=== PATIENT | male | born 1985 | race Caucasian/White ===

== ENCOUNTER 2017-12-19 09:56 | Emergency (ER) | payer MEDICAID ==
[~2017-12-19] VITALS: Ht 177.8 cm; Wt 90.0 kg
[~2017-12-19 09:56] MED LIST: ADVI200C9; CYCL-36 PO; ULTR50TA PO; ZOFR4TAB3 SL
[2017-12-19] MEDS ORDERED: IOHEXOL 350 MG/ML 10 ML VIAL (for RAD DIAG) IVCONTRAST ONE (09:57)
[2017-12-19 10:01] VITALS: BP 164/79; PULSE 50; RESP 18; TEMP 98.4; O2SAT 98
[2017-12-19] MEDS ORDERED: SODIUM CHLOR 0.9% 1000 ML INJ 1,000 ML IV SCH (10:10)
--- NOTE | 2017-12-19 10:13 | PD ---
HPI Chief Complaint: GI Complaint Time Seen by Provider: 10:03 Travel History International Travel<30 days: No Contact w/Intl Traveler<30days: No Traveled to known affect area: No History of Present Illness HPI The patient is a 32-year-old male who presents to the emergency department via private vehicle for nausea, vomiting, diarrhea, and abdominal pain. The patient states his symptoms started on Wednesday night. The patient states he had body aches, had pain that went up the spine to the shoulders and down into the legs with cramping. The patient was in and out of a hot shower to alleviate his symptoms. He then developed nausea and vomiting, now notes epigastric pain. He does have some epigastric pain that radiates to the back with a burning sensation throughout the chest. The patient was seen at [facility] where he states he received IV fluids and was discharged home with anxiety medications. However, the patient has persistent nausea and vomiting as well as diarrhea. The patient describes the diarrhea as loose, watery, brown, without any visible blood. The patient denies any recent international travel and denies any sick contacts at home. He denies any fever , chills, or sweats. [facility] Past Medical History Medical History: Denies Significant Hx Diminished Hearing: No Tetanus Vaccination: < 5 Years Social History Alcohol Use: Yes (occ) Tobacco Use: No Substance Use: No Allergies-Medications (Allergen,Severity, Reaction): Coded Allergies: No Known Allergies (Verified Allergy, Mild, 02/02/15) Reported Meds & Prescriptions Reported Meds & Active Scripts Active Review of Systems Except as stated in HPI: all other systems reviewed are Neg General / Constitutional: No: Fever, Chills HENT: No: Lightheadedness Cardiovascular: No: Chest Pain or Discomfort Respiratory: No: Shortness of Breath Gastrointestinal: Positive: Nausea, Vomiting, Diarrhea, Abdominal Pain Genitourinary: No: Dysuria Musculoskeletal: Positive: Cramping Neurologic: No: Weakness, Dizziness Physical Exam Narrative GENERAL: Awake, alert, pleasant 32-year-old male who appears his stated age and is in no acute respiratory distress. SKIN: Focused skin assessment warm/dry. HEAD: Atraumatic. Normocephalic. EYES: Pupils equal and round. No scleral icterus. No injection or drainage. ENT: No nasal bleeding or discharge. Mucous membranes pink and moist. NECK: Trachea midline. No JVD. CARDIOVASCULAR: Regular, bradycardic with a heart rate in the 50s. RESPIRATORY: No accessory muscle use. Clear to auscultation. Breath sounds equal bilaterally. GASTROINTESTINAL: Abdomen soft, mild epigastric tenderness. No guarding or rigidity. Negative Vega's. Negative McBurney's. Back: No CVA tenderness. MUSCULOSKELETAL: No obvious deformities. No clubbing. No cyanosis. No edema. NEUROLOGICAL: Awake and alert. No obvious cranial nerve deficits. Motor grossly within normal limits. Normal speech. PSYCHIATRIC: Appropriate mood and affect; insight and judgment normal. Data Data Last Documented VS Vital Signs Date Time Temp Pulse Resp B/P (MAP) Pulse Ox O2 Delivery O2 Flow Rate FiO2 12/19/17 14:00 66 18 156/73 (100) 98 Room Air 12/19/17 10:01 98.4 Orders Orders Complete Blood Count With Diff (12/19/17 10:10) Comprehensive Metabolic Panel (12/19/17 10:10) Lipase (12/19/17 10:10) Lactic Acid (12/19/17 10:10) Urinalysis - C+S If Indicated (12/19/17 10:10) Iv Access Insert/Monitor (12/19/17 10:10) Ecg Monitoring (12/19/17 10:10) Oximetry (12/19/17 10:10) Morphine Inj (Morphine Inj) (12/19/17 10:15) Sodium Chlor 0.9% 1000 Ml Inj (Ns 1000 M (12/19/17 10:10) Sodium Chloride 0.9% Flush (Ns Flush) (12/19/17 10:15) Famotidine Inj (Pepcid Inj) (12/19/17 10:15) Metoclopramide Inj (Reglan Inj) (12/19/17 10:15) Sodium Chlor 0.9% 1000 Ml Inj (Ns 1000 M (12/19/17 12:30) Ct Abd/Pel W Iv Contrast(Rout) (12/19/17 ) Prochlorperazine Inj (Compazine Inj) (12/19/17 13:00) Iohexol 350 Inj (Omnipaque 350 Inj) (12/19/17 09:57) Labs Laboratory Tests Test 12/19/17 10:30 12/19/17 11:41 White Blood Count 10.8 TH/MM3 Red Blood Count 5.19 MIL/MM3 Hemoglobin 16.0 GM/DL Hematocrit 46.7 % Mean Corpuscular Volume 89.9 FL Mean Corpuscular Hemoglobin 30.8 PG Mean Corpuscular Hemoglobin Concent 34.3 % Red Cell Distribution Width 12.8 % Platelet Count 235 TH/MM3 Mean Platelet Volume 9.8 FL Neutrophils (%) (Auto) 84.0 % Lymphocytes (%) (Auto) 8.7 % Monocytes (%) (Auto) 6.6 % Eosinophils (%) (Auto) 0.3 % Basophils (%) (Auto) 0.4 % Neutrophils # (Auto) 9.1 TH/MM3 Lymphocytes # (Auto) 0.9 TH/MM3 Monocytes # (Auto) 0.7 TH/MM3 Eosinophils # (Auto) 0.0 TH/MM3 Basophils # (Auto) 0.0 TH/MM3 CBC Comment DIFF FINAL Differential Comment Blood Urea Nitrogen 12 MG/DL Creatinine 0.90 MG/DL Random Glucose 92 MG/DL Total Protein 8.2 GM/DL Albumin 4.2 GM/DL Calcium Level 8.8 MG/DL Alkaline Phosphatase 84 U/L Aspartate Amino Transf (AST/SGOT) 38 U/L Alanine Aminotransferase (ALT/SGPT) 100 U/L Total Bilirubin 1.0 MG/DL Sodium Level 139 MEQ/L Potassium Level 3.8 MEQ/L Chloride Level 105 MEQ/L Carbon Dioxide Level 22.3 MEQ/L Anion Gap 12 MEQ/L Estimat Glomerular Filtration Rate 99 ML/MIN Lactic Acid Level 1.0 mmol/L Lipase 67 U/L Urine Color YELLOW Urine Turbidity CLEAR Urine pH 5.0 Urine Specific Newcomb 1.019 Urine Protein NEG mg/dL Urine Glucose (UA) NEG mg/dL Urine Ketones 80 OR GREATER mg/dL Urine Occult Blood SMALL Urine Nitrite NEG Urine Bilirubin NEG Urine Urobilinogen LESS THAN 2 mg/dL Urine Leukocyte Esterase NEG Urine RBC LESS THAN 1 /hpf Urine WBC 1 /hpf Urine Hyaline Casts 1 /lpf Urine Mucus FEW /lpf Microscopic Urinalysis Comment CULT NOT INDICATED MDM Medical Decision Making Medical Screen Exam Complete: Yes Emergency Medical Condition: Yes Medical Record Reviewed: Yes Interpretation(s) Laboratory Tests Test 12/19/17 10:30 12/19/17 11:41 White Blood Count 10.8 TH/MM3 Red Blood Count 5.19 MIL/MM3 Hemoglobin 16.0 GM/DL Hematocrit 46.7 % Mean Corpuscular Volume 89.9 FL Mean Corpuscular Hemoglobin 30.8 PG Mean Corpuscular Hemoglobin Concent 34.3 % Red Cell Distribution Width 12.8 % Platelet Count 235 TH/MM3 Mean Platelet Volume 9.8 FL Neutrophils (%) (Auto) 84.0 % Lymphocytes (%) (Auto) 8.7 % Monocytes (%) (Auto) 6.6 % Eosinophils (%) (Auto) 0.3 % Basophils (%) (Auto) 0.4 % Neutrophils # (Auto) 9.1 TH/MM3 Lymphocytes # (Auto) 0.9 TH/MM3 Monocytes # (Auto) 0.7 TH/MM3 Eosinophils # (Auto) 0.0 TH/MM3 Basophils # (Auto) 0.0 TH/MM3 CBC Comment DIFF FINAL Differential Comment Blood Urea Nitrogen 12 MG/DL Creatinine 0.90 MG/DL Random Glucose 92 MG/DL Total Protein 8.2 GM/DL Albumin 4.2 GM/DL Calcium Level 8.8 MG/DL Alkaline Phosphatase 84 U/L Aspartate Amino Transf (AST/SGOT) 38 U/L Alanine Aminotransferase (ALT/SGPT) 100 U/L Total Bilirubin 1.0 MG/DL Sodium Level 139 MEQ/L Potassium Level 3.8 MEQ/L Chloride Level 105 MEQ/L Carbon Dioxide Level 22.3 MEQ/L Anion Gap 12 MEQ/L Estimat Glomerular Filtration Rate 99 ML/MIN Lactic Acid Level 1.0 mmol/L Lipase 67 U/L Urine Color YELLOW Urine Turbidity CLEAR Urine pH 5.0 Urine Specific Newcomb 1.019 Urine Protein NEG mg/dL Urine Glucose (UA) NEG mg/dL Urine Ketones 80 OR GREATER mg/dL Urine Occult Blood SMALL Urine Nitrite NEG Urine Bilirubin NEG Urine Urobilinogen LESS THAN 2 mg/dL Urine Leukocyte Esterase NEG Urine RBC LESS THAN 1 /hpf Urine WBC 1 /hpf Urine Hyaline Casts 1 /lpf Urine Mucus FEW /lpf Microscopic Urinalysis Comment CULT NOT INDICATED Last Impressions Abdomen/Pelvis CT 12/19/17 0000 Signed Impressions: CONCLUSION: 1. Negative CT abdomen/pelvis with contrast. Differential Diagnosis Differential diagnosis includes gastroenteritis, food poisoning, gastritis, enteritis, colitis, dehydration, acute kidney injury, electrolyte abnormality, pancreatitis. Narrative Course IV was established, labs are drawn and sent, and the patient was placed on cardiac telemetry monitoring and continuous pulse oximetry monitoring. The patient was administered Reglan, morphine, and IV fluids. Lipase level was sent to lab. The patient's white count is unremarkable. LFTs and lipase are within normal limits. Lactic acid is normal at 1.0. UA does reveal ketones 80 or greater consistent with mild dehydration. The patient was administered a second liter of IV fluids and was reevaluated at 12:25 PM. The patient was unable to tolerate oral intake, he had another episode of vomiting. Therefore, the patient was administer Compazine [address] the abdomen and pelvis was performed. CT the abdomen pelvis is negative. The patient was reevaluated at 3:15 PM. Patient states he has had no more vomiting, we will have a second trial of p.o. intake/challenge. The patient was able to tolerate gram crackers and alicia angelo, at 4:10 PM he felt well enough to go home. I will write for Phenergan and Zofran. I have advised him to have a clear liquid diet and advance as tolerated. Return if symptoms worsen or progress. Diagnosis Primary Impression: Gastroenteritis Patient Instructions: General Instructions Additional Instructions: Please provide the patient a copy of his labs and CT results at discharge. Medications as directed. Clear liquid diet and advance as tolerated. Work excuse for today and tomorrow. Return if symptoms worsen or progress. Med/Other Pt SpecificInfo: Prescription(s) given Scripts Promethazine (Phenergan) 25 Mg Tablet 25 MG PO Q6H Y for NAUSEA OR VOMITING, #12 TAB 0 Refills Prov: Alejandro Mcneil MD 12/19/17 Ondansetron Odt (Zofran Odt) 4 Mg Tab 4 MG SL Q6HR Y for Nausea/Vomiting, #10 TAB 0 Refills Prov: Alejandro Mcneil MD 12/19/17 Disposition: 01 DISCHARGE HOME Condition: Stable Alejandro Mcneil MD Dec 19, 2017 10:13
[2017-12-19] MEDS ORDERED: MORPHINE SULFATE 4 MG/ML INJ IV PUSH ONE (10:15)
[2017-12-19] MEDS ORDERED: METOCLOPRAMIDE HCL 10 MG/2 ML VIAL IV PUSH ONE (10:15)
[2017-12-19] MEDS ORDERED: FAMOTIDINE 20 MG/2 ML VIAL IV PUSH ONE (10:15)
[2017-12-19] MEDS ORDERED: SODIUM CHLORIDE 0.9% FLUSH 10 ML FLUSH IV FLUSH PRN (10:15)
[2017-12-19 10:20] VITALS: RESP 16; O2SAT 99
[2017-12-19 10:46] LABS: AUTOMATED NEUTROPHIL # 9.1 TH/MM3 (1.8-7.7); BASOPHIL % 0.4 % (0.0-2.0); EOSINOPHIL % 0.3 % (0.0-4.0); HEMATOCRIT 46.7 % (39.0-51.0); LYMPH % 8.7 % (9.0-44.0); LYMPHOCYTE # 0.9 TH/MM3 (1.0-4.8); MEAN CELL VOLUME 89.9 FL (80.0-100.0); MEAN CORPUSCULAR HEMOGLOBIN 30.8 PG (27.0-34.0); MEAN CORPUSCULAR HGB CONC 34.3 % (32.0-36.0); MEAN PLATELET VOLUME 9.8 FL (7.0-11.0); MONO % 6.6 % (0.0-8.0); MONOCYTE # 0.7 TH/MM3 (0-0.9); PLATELET COUNT 235 TH/MM3 (150-450); RED BLOOD COUNT 5.19 MIL/MM3 (4.50-5.90); RED CELL DISTRIBUTION WIDTH 12.8 % (11.6-17.2); WHITE BLOOD COUNT 10.8 TH/MM3 (4.0-11.0)
[2017-12-19 11:05] LABS: ALBUMIN 4.2 GM/DL (3.4-5.0); ALT (GPT) 100 U/L (12-78); AST (GOT) 38 U/L (15-37); BICARBONATE 22.3 MEQ/L (21.0-32.0); BLOOD UREA NITROGEN 12 MG/DL (7-18); CALCIUM 8.8 MG/DL (8.5-10.1); CHLORIDE 105 MEQ/L (98-107); GLOMERULAR FILTRATION RATE 99 ML/MIN (>89); GLUCOSE,RANDOM 92 MG/DL (74-106); SODIUM (NA) 139 MEQ/L (136-145)
[2017-12-19 11:07] LABS: ALKALINE PHOSPHATASE 84 U/L (45-117); TOTAL PROTEIN 8.2 GM/DL (6.4-8.2)
[2017-12-19 12:15] LABS: BILIRUBIN, URINE NEG (NEG); BLOOD, URINE SMALL (NEG); GLUCOSE,URINE NEG (NEG); HYALINE CAST, URINE 1 /lpf (RARE); KETONE, URINE 80 OR GREATER mg/dL (NEG); MUCUS URINE FEW /lpf (OCC); NITRITE,URINE NEG (NEG); URINE COLOR YELLOW (YELLW/STRAW); URINE LEUKOCYTE ESTERASE NEG (NEG)
[2017-12-19] MEDS ORDERED: SODIUM CHLOR 0.9% 1000 ML INJ 1,000 ML IV ONE (12:30)
[2017-12-19] MEDS ORDERED: PROCHLORPERAZINE INJ 10 MG/2 ML VIAL IV PUSH ONE (13:00)
[2017-12-19 14:00] VITALS: BP 156/73; PULSE 66; RESP 18; O2SAT 98
--- NOTE | 2017-12-19 15:15 | RADRPT ---
EXAM DATE: 12/19/2017 2:14 PM EDT AGE/SEX: 32 years / Male INDICATIONS: Patient complains of abdominal pain with nausea and vomiting for four days. CLINICAL DATA: This is the patient's initial encounter. Patient reports that signs and symptoms have been present for 4 - 6 days and indicates a pain score of 7/10. MEDICAL/SURGICAL HISTORY: None. None. ORAL CONTRAST: No oral contrast ingested. RADIATION DOSE: 6.71 CTDI (mGy) COMPARISON: [facility], CT ABDOMEN & PELVIS W CONTRAST, 02/02/2015. . TECHNIQUE: Multiple contiguous axial images were obtained through the abdomen and pelvis following b olus infusion of 95 ml Omnipaque 350 (iohexol) nonionic water-soluble contrast as a single exam dos e. No oral contrast ingested. Using automated exposure control and adjustment of the mA and/or kV ac cording to patient size, the radiation dose was kept as low as reasonably achievable to obtain optima l diagnostic quality images. FINDINGS: Lower Lungs: The visualized lower lungs are clear. Liver: The liver has a homogeneous density without space-occupying lesion. There is no dilation of th e biliary tree. No calcified gallstones. Spleen: Homogeneous density without enlargement. Pancreas: Unremarkable without mass or calcification. Kidneys: Normal in size and shape. No evidence of mass or hydronephrosis. Adrenal Glands: Unremarkable. Aorta: The aorta and proximal iliac vessels are grossly unremarkable without aneurysmal dilation. Bowel/Mesentery: No dilated loops of small or large bowel. No evidence of free fluid. Abdominal Wall: Intact. Retroperitoneum: No evidence of adenopathy in the retrocrural, para-aortic, or deep pelvic regions. Bladder: Contours are smooth. Reproductive Organs: No abnormal masses or calcifications seen. Inguinal: The inguinal region is unremarkable without evidence of adenopathy. Bony Structures: Unremarkable. CONCLUSION: 1. Negative CT abdomen/pelvis with contrast. Electronically signed by: Gianfranco Stout MD 12/19/2017 3:14 PM EDT
[2017-12-19] MEDS ORDERED: ZOFR4TAB3 SL (16:15)
[2017-12-19] MEDS ORDERED: PROM25TA10 PO (16:15)
== END 2017-12-19 16:35 | disposition home or self-care (01) ==
LOC: NEPC 09:56
DX: K52.9 Noninfective gastroenteritis and colitis, unspecified (principal); E86.0 Dehydration; F41.9 Anxiety disorder, unspecified
CPT/HCPCS: 74177; 80053; 81001; 83605; 83690; 85025; 96361; 96374; 96375; 99285; J0780; J2270; J2765; J7030; Q9967

== ENCOUNTER 2017-12-26 08:35 | Emergency (ER) | payer MEDICAID ==
[~2017-12-26] VITALS: Ht 175.3 cm; Wt 87.0 kg
[~2017-12-26 08:35] MED LIST changes: -ADVI200C9; -CYCL-36 PO; +PROM25TA10 PO; -ULTR50TA PO
[2017-12-26 08:38] VITALS: PULSE 68; RESP 19; TEMP 99.1; O2SAT 96
[2017-12-26 08:47] VITALS: BP 151/88; PULSE 67; RESP 18; O2SAT 97
[2017-12-26] MEDS ORDERED: SODIUM CHLOR 0.9% 1000 ML INJ 1,000 ML IV SCH (08:58)
[2017-12-26] MEDS ORDERED: SODIUM CHLORIDE 0.9% FLUSH 10 ML FLUSH IV FLUSH PRN (09:00)
[2017-12-26] MEDS ORDERED: METOCLOPRAMIDE HCL 10 MG/2 ML VIAL IV PUSH ONE (09:15)
--- NOTE | 2017-12-26 09:16 | PD ---
HPI Chief Complaint: GI Complaint Time Seen by Provider: 09:07 Travel History International Travel<30 days: No Contact w/Intl Traveler<30days: No Traveled to known affect area: No History of Present Illness HPI 32-year-old male patient presents to the ER today, has had 2 weeks history of myalgias, nausea, vomiting, diarrhea according to his father, started after he was working outside, not drinking anything. He had been evaluated in the ER previous week, had full workup which was negative. He apparently had been seen at [facility] for patient had been given a Zofran prescription and a benzo prescription, filled out them benzodiazepine but did not fill the Zofran, and comes to the ER today because he is still having muscle cramping, nauseous, throwing up, not feeling well. He denies any fevers or any other issues. He states he is having spasming in his back which she rates at a 8 out of 10. He denies any incontinence. He denies any substance use. Modifying Factors: None Associated Signs & Symptoms: Nausea, vomiting, diarrhea, muscle cramping, back pain Risk Factors: None PFSH Past Medical History Diminished Hearing: No Tetanus Vaccination: Unknown Influenza Vaccination: No ?: Not Social History Alcohol Use: Yes (occ) Tobacco Use: Yes Substance Use: No Allergies-Medications (Allergen,Severity, Reaction): Coded Allergies: No Known Allergies (Verified Allergy, Mild, 02/02/15) Reported Meds & Prescriptions Reported Meds & Active Scripts Active Phenergan (Promethazine HCl) 25 Mg Tablet 25 Mg PO Q6H PRN Zofran Odt (Ondansetron Odt) 4 Mg Tab 4 Mg SL Q6HR PRN Review of Systems Except as stated in HPI: all other systems reviewed are Neg Physical Exam Narrative GENERAL: Well-developed young white male patient currently in moderate distress writhing in bed. Awake and oriented 3. SKIN: Focused skin assessment warm/dry. HEAD: Atraumatic. Normocephalic. EYES: Pupils equal and round. No scleral icterus. No injection or drainage. ENT: No nasal bleeding or discharge. Mucous membranes pink and moist. NECK: Trachea midline. No JVD. CARDIOVASCULAR: Regular rate and rhythm. No murmur appreciated. RESPIRATORY: No accessory muscle use. Clear to auscultation. Breath sounds equal bilaterally. GASTROINTESTINAL: Abdomen soft, non-tender, nondistended. Hepatic and splenic margins not palpable. BACK: No CVA tenderness. No rash. No point tenderness on palpation of the spine. Mild tenderness to palpation in the mid back region without point tenderness. MUSCULOSKELETAL: No obvious deformities. No clubbing. No cyanosis. No edema. NEUROLOGICAL: Awake and alert. No obvious cranial nerve deficits. Motor grossly within normal limits. Normal speech. PSYCHIATRIC: Appropriate mood and affect; insight and judgment normal. Data Data Last Documented VS Vital Signs Date Time Temp Pulse Resp B/P (MAP) Pulse Ox O2 Delivery O2 Flow Rate FiO2 12/26/17 09:18 77 18 99 Room Air 12/26/17 08:38 99.1 Orders Orders Complete Blood Count With Diff (12/26/17 08:58) Comprehensive Metabolic Panel (12/26/17 08:58) Lipase (12/26/17 08:58) Iv Access Insert/Monitor (12/26/17 08:58) Ecg Monitoring (12/26/17 08:58) Oximetry (12/26/17 08:58) Sodium Chlor 0.9% 1000 Ml Inj (Ns 1000 M (12/26/17 08:58) Sodium Chloride 0.9% Flush (Ns Flush) (12/26/17 09:00) Metoclopramide Inj (Reglan Inj) (12/26/17 09:15) Promethazine Inj (Phenergan Inj) (12/26/17 10:15) Lorazepam Inj (Ativan Inj) (12/26/17 10:30) Mri T Spine W/O Contrast (12/26/17 10:17) Mri L Spine W/O Contrast (12/26/17 10:17) Ed Discharge Order (12/26/17 12:35) Labs Laboratory Tests Test 12/26/17 09:12 White Blood Count 11.8 TH/MM3 Red Blood Count 5.35 MIL/MM3 Hemoglobin 16.4 GM/DL Hematocrit 48.6 % Mean Corpuscular Volume 90.9 FL Mean Corpuscular Hemoglobin 30.7 PG Mean Corpuscular Hemoglobin Concent 33.8 % Red Cell Distribution Width 13.2 % Platelet Count 242 TH/MM3 Mean Platelet Volume 9.9 FL Neutrophils (%) (Auto) 84.7 % Lymphocytes (%) (Auto) 8.3 % Monocytes (%) (Auto) 6.0 % Eosinophils (%) (Auto) 0.6 % Basophils (%) (Auto) 0.4 % Neutrophils # (Auto) 10.0 TH/MM3 Lymphocytes # (Auto) 1.0 TH/MM3 Monocytes # (Auto) 0.7 TH/MM3 Eosinophils # (Auto) 0.1 TH/MM3 Basophils # (Auto) 0.0 TH/MM3 CBC Comment DIFF FINAL Differential Comment Blood Urea Nitrogen 12 MG/DL Creatinine 1.17 MG/DL Random Glucose 116 MG/DL Total Protein 8.8 GM/DL Albumin 4.6 GM/DL Calcium Level 9.3 MG/DL Alkaline Phosphatase 85 U/L Aspartate Amino Transf (AST/SGOT) 20 U/L Alanine Aminotransferase (ALT/SGPT) 66 U/L Total Bilirubin 0.4 MG/DL Sodium Level 139 MEQ/L Potassium Level 3.8 MEQ/L Chloride Level 104 MEQ/L Carbon Dioxide Level 26.0 MEQ/L Anion Gap 9 MEQ/L Estimat Glomerular Filtration Rate 73 ML/MIN Lipase 129 U/L [facility] Medical Decision Making Medical Screen Exam Complete: Yes Emergency Medical Condition: Yes Medical Record Reviewed: Yes Interpretation(s) Laboratory Tests Test 12/26/17 09:12 White Blood Count 11.8 TH/MM3 (4.0-11.0) Neutrophils (%) (Auto) 84.7 % (16.0-70.0) Lymphocytes (%) (Auto) 8.3 % (9.0-44.0) Neutrophils # (Auto) 10.0 TH/MM3 (1.8-7.7) Random Glucose 116 MG/DL (74-106) Total Protein 8.8 GM/DL (6.4-8.2) Estimat Glomerular Filtration Rate 73 ML/MIN (>89) Last 24 hours Impressions Thoracic Spine MRI 12/26/17 1017 Signed Impressions: CONCLUSION: 1. Mild kyphosis. 2. No compression fracture or spondylolisthesis. 3. Tiny central protrusion C6-7 and T7-8 levels without canal stenosis. Lumbar Spine MRI 12/26/17 1017 Signed Impressions: CONCLUSION: 1. Unremarkable lumbar spine Differential Diagnosis Muscle spasms versus dehydration versus electrolyte abnormalities versus opiate withdrawal versus gastroenteritis versus pancreatitis Narrative Course Lab work shows mild white blood cell count elevation. Patient is writhing in the ER and MRI was evaluation. He does not have saddle anesthesia. Patient had a prior CAT scan a week ago denies any signs of acute intra-abdominal processes. At this point, patient is complaining more of back pain than abdominal pain. MRI did not show any signs of acute processes but does show some bulging disc which could be causing him some symptoms. Patient was given IV fluids, Reglan, and Phenergan in the ER. On reevaluation at 12:30 PM, he is appearing more comfortable. My plan would be to release him with follow-up to primary care doctor. Return for worsening in symptoms as necessary. The plan has been discussed with him he states understanding. Diagnosis Primary Impression: Back muscle spasm Additional Impression: Nausea & vomiting Disposition: 01 DISCHARGE HOME Condition: Stable Kimberli Queen MD Dec 26, 2017 09:16
[2017-12-26 09:18] VITALS: PULSE 77; RESP 18; O2SAT 99
[2017-12-26 09:30] LABS: BASOPHIL % 0.4 % (0.0-2.0); EOSINOPHIL # 0.1 TH/MM3 (0-0.4); EOSINOPHIL % 0.6 % (0.0-4.0); HEMATOCRIT 48.6 % (39.0-51.0); HEMOGLOBIN 16.4 GM/DL (13.0-17.0); LYMPH % 8.3 % (9.0-44.0); MEAN CELL VOLUME 90.9 FL (80.0-100.0); MEAN CORPUSCULAR HEMOGLOBIN 30.7 PG (27.0-34.0); MEAN CORPUSCULAR HGB CONC 33.8 % (32.0-36.0); MEAN PLATELET VOLUME 9.9 FL (7.0-11.0); MONOCYTE # 0.7 TH/MM3 (0-0.9); NEUT % 84.7 % (16.0-70.0); PLATELET COUNT 242 TH/MM3 (150-450); RED BLOOD COUNT 5.35 MIL/MM3 (4.50-5.90); RED CELL DISTRIBUTION WIDTH 13.2 % (11.6-17.2); WHITE BLOOD COUNT 11.8 TH/MM3 (4.0-11.0)
[2017-12-26 09:54] LABS: ALBUMIN 4.6 GM/DL (3.4-5.0); ALT (GPT) 66 U/L (12-78); AST (GOT) 20 U/L (15-37); BLOOD UREA NITROGEN 12 MG/DL (7-18); CALCIUM 9.3 MG/DL (8.5-10.1); CHLORIDE 104 MEQ/L (98-107); CREATININE 1.17 MG/DL (0.60-1.30); GLOMERULAR FILTRATION RATE 73 ML/MIN (>89); GLUCOSE,RANDOM 116 MG/DL (74-106); SODIUM (NA) 139 MEQ/L (136-145)
[2017-12-26 09:57] LABS: ALKALINE PHOSPHATASE 85 U/L (45-117); TOTAL BILIRUBIN ADULT 0.4 MG/DL (0.2-1.0); TOTAL PROTEIN 8.8 GM/DL (6.4-8.2)
[2017-12-26] MEDS ORDERED: PROMETHAZINE INJ 25 MG/ML VIAL IM ONE (10:15)
[2017-12-26] MEDS ORDERED: LORazepam 2 MG/ML VIAL IV PUSH ONE (10:30)
--- NOTE | 2017-12-26 12:29 | RADRPT ---
EXAM DATE: 12/26/2017 11:48 AM EDT AGE/SEX: 32 years / Male INDICATIONS: Pain. CLINICAL DATA: This is the patient's initial encounter. Patient reports that signs and symptoms have been present for 2 weeks and indicates a pain score of 5/10. MEDICAL/SURGICAL HISTORY: None. None. COMPARISON: No prior exams available for comparison. TECHNIQUE: Multiplanar, multisequence MRI of the lumbar spine was performed without contrast. Patie nt was scanned in a sitting position; neutral, flexion, and extension scans were performed in the sa gittal plane. FINDINGS: Vertebra: Homogeneous signal. Normal alignment. Conus: Normal level and configuration. T12-L1: The thecal sac has a normal diameter. No evidence of disc bulge or protrusion. The neural foramina are patent bilaterally. L1-L2: The thecal sac has a normal diameter. No evidence of disc bulge or protrusion. The neural foramina are patent bilaterally. L2-L3: The thecal sac has a normal diameter. No evidence of disc bulge or protrusion. The neural foramina are patent bilaterally. L3-L4: The thecal sac has a normal diameter. No evidence of disc bulge or protrusion. The neural foramina are patent bilaterally. L4-L5: The thecal sac has a normal diameter. No evidence of disc bulge or protrusion. The neural foramina are patent bilaterally. L5-S1: The thecal sac has a normal diameter. No evidence of disc bulge or protrusion. The neural foramina are patent bilaterally. CONCLUSION: 1. Unremarkable lumbar spine Electronically signed by: Hardik Snell MD 12/26/2017 12:28 PM EDT
--- NOTE | 2017-12-26 12:29 | RADRPT ---
EXAM DATE: 12/26/2017 11:47 AM EDT AGE/SEX: 32 years / Male INDICATIONS: Pain. CLINICAL DATA: This is the patient's initial encounter. Patient reports that signs and symptoms have been present for 2 weeks and indicates a pain score of 5/10. MEDICAL/SURGICAL HISTORY: None. None. COMPARISON: No prior exams available for comparison. TECHNIQUE: Multiplanar, multisequence MRI of the thoracic spine was performed. FINDINGS: Vertebrae: Normal vertebral body height. Homogeneous marrow signal. Mild degenerative changes. Alignment: Mild kyphosis. No spondylolisthesis. Cord: Normal position and configuration. T1-T2: The thecal sac has a normal diameter. No evidence of disc bulge or protrusion. T2-T3: The thecal sac has a normal diameter. No evidence of disc bulge or protrusion. T3-T4: The thecal sac has a normal diameter. No evidence of disc bulge or protrusion. T4-T5: The thecal sac has a normal diameter. No evidence of disc bulge or protrusion. T5-T6: The thecal sac has a normal diameter. No evidence of disc bulge or protrusion. T6-T7: Tiny central protrusion abuts the ventral thecal sac without canal stenosis. T7-T8: Tiny central protrusion abuts the ventral thecal sac without canal stenosis T8-T9: The thecal sac has a normal diameter. No evidence of disc bulge or protrusion. T9-T10: The thecal sac has a normal diameter. No evidence of disc bulge or protrusion. T10-T11: The thecal sac has a normal diameter. No evidence of disc bulge or protrusion. T11-T12: The thecal sac has a normal diameter. No evidence of disc bulge or protrusion. T12-L1: The thecal sac has a normal diameter. No evidence of disc bulge or protrusion. CONCLUSION: 1. Mild kyphosis. 2. No compression fracture or spondylolisthesis. 3. Tiny central protrusion C6-7 and T7-8 levels without canal stenosis. Electronically signed by: Hardik Snell MD 12/26/2017 12:27 PM EDT
== END 2017-12-26 13:22 | disposition home or self-care (01) ==
LOC: NEPE 08:35
DX: M62.830 Muscle spasm of back (principal); R11.2 Nausea with vomiting, unspecified; R19.7 Diarrhea, unspecified; D72.829 Elevated white blood cell count, unspecified; Z72.0 Tobacco use
CPT/HCPCS: 72146; 72148; 80053; 83690; 85025; 96361; 96372; 96374; 96375; 99284; J2060; J2550; J2765; J7030